=== PATIENT | female | born 1995 | race Caucasian/White ===

== ENCOUNTER 2017-11-18 23:04 | Emergency (ER) | payer OTHER ==
[~2017-11-18] VITALS: Ht 165.1 cm; Wt 47.7 kg
[2017-11-18 23:11] VITALS: TEMP 97.9
[2017-11-19 01:26] VITALS: BP 107/67; PULSE 83
== END 2017-11-19 03:29 | disposition home or self-care (01) ==
LOC: COL.ER 23:04
DX: F10.129 Alcohol abuse with intoxication, unspecified (principal); K29.20 Alcoholic gastritis without bleeding
CPT/HCPCS: C9113; J2405; J2550; J7030